=== PATIENT | male | born 1990 | race Hispanic/Latino ===

== ENCOUNTER 2023-05-04 19:25 | Emergency (ER) | payer SELFPAY ==
--- NOTE | ~2023-05-04 | XR_ITS ---
EXAMINATION: XR chest 2V DATE: 05/04/2023 20:07 INDICATION: Chest pain TECHNIQUE: PA and lateral views of the chest are obtained. COMPARISON: None available FINDINGS: The lungs are free of acute opacities. No pleural effusion or pneumothorax. The cardiomedia stinal silhouette is normal. There is mild thoracic spondylosis. IMPRESSION: 1. No acute cardiopulmonary abnormality. Reviewed, dictated and finalized at location F.
--- NOTE | 2023-05-04 19:32 | ECG_ITS ---
Measurements Intervals [place] Rate: 73 P: 48 WV: 145 QRS: 60 QRSD: 81 T: 40 QT: 366 QTc: 406 Interpretive Statements SINUS RHYTHM ST ELEVATION IN DIFFUSE LEADS- PROBABLY EARLY REPOLARIZATION ABNORMALITY BASELINE WANDER- II, III, AVR, AVL, AVF BORDERLINE ECG NO PREVIOUS ECG AVAILABLE FOR COMPARISON Electronically Signed On 05-05-2023 6:29:19 CDT by He Medrano D.O.
[2023-05-04 19:41] VITALS: BP 114/62; PULSE 79; RESP 20; TEMP 36.9; O2SAT 99
[2023-05-04 19:58] LABS: Basophils Percent Auto 0.4 % (0.2-1.2); Eosinophils Absolute Auto 0.1 K/mm3 (0-0.3); Eosinophils Percent Auto 2.5 % (0-4.4); Hematocrit 40.9 % (42.0-52.0); Hemoglobin 14.3 g/dL (14.0-18.0); Immature Granulocyte Absolute 0.03 K/mm3 (0.00-0.031); Immature Granulocyte Percent A 0.6 % (0-0.5); Lymphocytes Absolute Auto 1.59 K/mm3 (0.9-3.2); Lymphocytes Percent Auto 30.2 % (18.3-44.2); Mean Corpuscular Hemoglobin 30.6 pg (26-34); Mean Corpuscular Volume 87.6 fl (80-100); Mean Platelet Volume 9.2 fl (7.4-10.4); Monocytes Absolute Auto 0.5 K/mm3 (0.1-0.6); Monocytes Percent Auto 9.5 % (2.6-8.5); Neutrophils Percent Auto 56.8 % (45.5-73.1); Platelet Count Result 243 k/mm3 (150-375); Red Blood Count 4.67 M/mm3 (4.6-6.20); Red Cell Distribution Width 12.8 % (11.5-14.5); White Blood Count 5.3 K/mm3 (4.5-10.0)
[2023-05-04 20:08] LABS: Prothrombin Time 13.4 Seconds (11.1-14.7)
[2023-05-04 20:09] LABS: Partial Thromboplastin Time 27.1 SECONDS (22.3-36.8)
[2023-05-04 20:16] LABS: Alanine Aminotransferase 42 U/L (6-50); Albumin Level 4.8 g/dL (3.5-5.1); Alkaline Phosphatase 60 U/L (38-126); Anion Gap 10 mmol/L (8-16); Aspartate Amino Transferase 39 U/L (17-59); Bilirubin,Total 0.4 mg/dL (0.2-1.3); Blood Urea Nitrogen 13 mg/dL (9-20); Calcium 8.9 mg/dL (8.4-10.2); Carbon Dioxide 25 mmol/L (22-30); Chloride 102 mmol/L (98-107); Estimated CRCL calculation 124 ml/min; Estimated Glomerular Filt Rate > 60; Glucose 100 mg/dL (65-110); Lipase 78 U/L (23-300); Potassium 4.1 mmol/L (3.4-5.0); Sodium 137 mmol/L (137-145)
[2023-05-04 20:27] LABS: Troponin I < 0.012 ng/mL (0.000-0.034)
--- NOTE | 2023-05-05 00:40 | ED.GENADULT ---
HPI - General Adult General Chief complaint: Chest Pain Stated complaint: Chest pain Time Seen by Provider: 05/04/23 23:35 History of Present Illness HPI narrative: Patient 32-year-old gentleman who presents the emergency department with chief complaint of left-sided chest pain. The patient reports he has had a sharp type pain worse with inspiration present on the left side of his chest the patient reports that its been going on for several weeks reports that he had no trauma reports no cough or upper respiratory symptoms the patient reports no prior history of cardiac disease reports no prior medical issues patient does report that he does not have a primary care provider in the area. Related Data Allergies Allergy/AdvReac Type Severity Reaction Status Date / Time No Known Allergies Allergy Verified 05/04/23 19:47 Review of Systems Review of Systems: A 10 system review of systems was completed on the patient and is negative except for what is stated in the HPI. Nursing and ancillary documentation was reviewed. Exam Narrative: GENERAL: Well-appearing, well-nourished, and in no acute distress. HEAD: Normocephalic, atraumatic. EYES: PERRLA and EOMI. ENT: Nares clear, no rhinorrhea or epistaxis. Mucous membranes moist. NECK: Supple. CHEST: Clear to auscultation. No respiratory distress. Chest wall is tender to palpation at left sternal border HEART: Regular rate and rhythm. No murmur heard. Normal peripheral pulses. ABDOMEN: Soft, nontender, nondistended, normal active bowel sounds. EXTREMITIES: Normal range of motion. No edema. SKIN: Warm, dry, no rash. NEURO: No focal deficits. Alert and oriented x3. PSYCH: Normal mood and affect. Course Vital Signs Vital signs: Vital Signs Temperature 36.9 C 05/04/23 19:41 Pulse Rate 79 05/04/23 19:41 Respiratory Rate 20 05/04/23 19:41 Blood Pressure 114/62 05/04/23 19:41 Pulse Oximetry 99 05/04/23 19:41 Oxygen Delivery Room Air 05/04/23 19:41 Temperature 36.9 C 05/04/23 19:41 Pulse Rate 79 05/04/23 19:41 Respiratory Rate 20 05/04/23 19:41 Blood Pressure 114/62 05/04/23 19:41 Pulse Oximetry 99 05/04/23 19:41 Oxygen Delivery Room Air 05/04/23 19:41 Medical Decision Making [facility] Narrative Medical decision making narrative: Differential diagnosis includes chest wall pain, pneumothorax, ACS EKG showed sinus rhythm rate of [address] elevation or ST depression Chest x-ray showed no pneumothorax or widened mediastinum Laboratory studies showed normal CBC normal CMP negative lipase and a troponin of less than 0.012 With the chest pain ongoing for the last several weeks 1 set of troponin will be able to clear the patient from a mi perspective. The chest pain is reproducible on exam patient was started on an anti-inflammatory and referred to primary care Vital Signs Vital Signs: Vital Signs Temperature 36.9 C 05/04/23 19:41 Pulse Rate 79 05/04/23 19:41 Respiratory Rate 20 05/04/23 19:41 Blood Pressure 114/62 05/04/23 19:41 Pulse Oximetry 99 05/04/23 19:41 Oxygen Delivery Room Air 05/04/23 19:41 Temperature 36.9 C 05/04/23 19:41 Pulse Rate 79 05/04/23 19:41 Respiratory Rate 20 05/04/23 19:41 Blood Pressure 114/62 05/04/23 19:41 Pulse Oximetry 99 05/04/23 19:41 Oxygen Delivery Room Air 05/04/23 19:41 Lab Data 05/04/23 19:52 05/04/23 19:52 Labs: Lab Results 05/04/23 Range/Units 19:52 WBC 5.3 (4.5-10.0) K/mm3 RBC 4.67 (4.6-6.20) M/mm3 Hgb 14.3 (14.0-18.0) g/dL Hct 40.9 L (42.0-52.0) % MCV 87.6 (80-100) fl MCH 30.6 (26-34) pg MCHC 35.0 (32-36) g/dl RDW 12.8 (11.5-14.5) % Plt Count 243 (150-375) k/mm3 MPV 9.2 (7.4-10.4) fl Immature Gran % (Auto) 0.6 H (0-0.5) % Neut % (Auto) 56.8 (45.5-73.1) % Lymph % (Auto) 30.2 (18.3-44.2) % [facility] % (Auto) 9.5 H (2.6-8.5) % Eos % (Auto) 2.5 (0-4.4)
[2023-05-05 00:52] VITALS: BP 123/72; PULSE 75; RESP 15; O2SAT 100
== END 2023-05-05 00:53 | disposition home or self-care (01) ==
PROVIDERS: Emergency Provider Emergency Medicine
DX: R07.89 Other chest pain (principal); R94.31 Abnormal electrocardiogram [ECG] [EKG]
CPT/HCPCS: 36415; 71046; 80053; 83690; 84484; 85025; 85610; 85730; 93005; 99284